=== PATIENT | male | born 1965 | race Caucasian/White ===

== ENCOUNTER → 2018-09-20 | Outpatient (CLI) | payer OTHER ==
[~2018-09-20] MED LIST: ACETAMINOPHEN 1000MG/100ML IV 100 ML IVPB; CEFAZOLIN 1 GM/50 ML (PMX) 50 ML IVPB; DEXAMETHASONE 4 MG/ML 1 ML INJ IV; HIP PAIN COCKTAIL (CEFUROXIME) INJ; LACTATED RINGER'S 1,000 ML IV*; LANSOPRAZOLE 30 MG CAP PO; ONDANSETRON 4 MG INJ IV; TRANEXAMIC ACID 1,000 MG in NS 100 ML INTRA-OP X1 IVPB; TRANEXAMIC ACID 1,000 MG in NS 100 ML PRE-OP X1 IVPB; oxyCODONE (CR) 10 MG TAB [oxyCONTIN] PO
== END | disposition home or self-care (01) ==
LOC: LAB 08:00
DX: Z01.812 Encounter for preprocedural laboratory examination (principal)
CPT/HCPCS: 87081

== ENCOUNTER → 2019-02-01 | Outpatient (CLI) | payer OTHER | END | disposition home or self-care (01) | LOC: HKI 14:44 | DX: M17.10 Unilateral primary osteoarthritis, unspecified knee (principal) | CPT/HCPCS: 77073 ==